=== PATIENT | male | born 1990 | race Caucasian/White ===

== ENCOUNTER 2020-08-21 02:09 | Emergency (ER) | payer MEDICAID ==
[~2020-08-21] VITALS: Ht 175.3 cm; Wt 73.0 kg
[2020-08-21] MEDS ORDERED: TETANUS, DIPHTHERIA, PERTUSSIS VAC/PF 0.5ML (>7YR OLD) IM ONE (04:00)
[2020-08-21] MEDS ORDERED: LIDOCAINE HCL 1% 20ML VIAL (Pyxis) INJ INFIL ONE (04:00)
[2020-08-21 04:51] LABS: BASOPHILS % 0.3 % (0.0-2.0); CHLORIDE 107 mEq/L (98-107); EOSINOPHILS % 1.2 % (0.0-5.0); HEMATOCRIT. 45.2 % (42.0-52.0); HEMOGLOBIN. 15.4 g/dL (14.0-18.0); LYMPHOCYTES % 13.8 % (20.0-50.0); MEAN CORPUSCULAR HEMOGLOBIN 31.7 pg (28.0-32.0); MEAN CORPUSCULAR VOLUME 92.7 fL (80.0-94.0); MEAN PLATELET VOLUME 7.6 fl (7.4-10.4); MONOCYTES % 7.5 % (2.0-8.0); NEUTROPHILS % 77.2 % (40.0-76.0); PLATELET 325 x1000/uL (130-400); RED BLOOD CELL COUNT 4.87 mill/uL (4.7-6.1); RED CELL DISTRIBUTION WIDTH 12.8 % (11.6-14.6)
[2020-08-21 09:57] VITALS: BP 130/78
== END 2020-08-21 09:57 | disposition home or self-care (01) ==
LOC: ER 02:09
DX: S01.81XA Laceration without foreign body of other part of head, initial encounter (principal); M54.5 Low back pain; Y08.89XA Assault by other specified means, initial encounter; Y93.89 Activity, other specified; Y92.488 Other paved roadways as the place of occurrence of the external cause
CPT/HCPCS: 36415; 70450; 71045; 72125; 74176; 80053; 85025; 86850; 86900; 86901; 90471; 90715; 99285; J3490; Z7610

== ENCOUNTER 2020-09-11 09:45 | Emergency (ER) | payer MEDICAID ==
[~2020-09-11] VITALS: Ht 175.3 cm; Wt 66.0 kg
[2020-09-11 09:53] VITALS: BP 112/85
== END 2020-09-11 10:27 | disposition home or self-care (01) ==
LOC: ER 09:52
DX: Z48.02 Encounter for removal of sutures (principal)
CPT/HCPCS: 99281; Z7610